=== PATIENT | female | born 2000 | race Caucasian/White ===

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

== ENCOUNTER 2022-10-10 07:47 | Emergency (ER) | payer MEDICAID ==
[~2022-10-10] VITALS: Ht 144.8 cm; Wt 59.0 kg
[2022-10-10 07:51] VITALS: BP 100/80
--- NOTE | 2022-10-10 07:59 | NUR ---
PT IS DRUNK UNABLE TO WALK BOYFRIEND TRIED TO GET A W/C HOWEVER , [employer] SAW THEM AND CALLED EMS FOR ASSISTANCE.
[2022-10-10 10:11] VITALS: BP 100/80
--- NOTE | 2022-10-10 10:11 | NUR ---
PT ELOPED AT THIS TIME
== END 2022-10-10 10:11 | disposition left against medical advice (07) ==
LOC: MED 07:47
DX: F10.129 Alcohol abuse with intoxication, unspecified (principal); Y90.9 Presence of alcohol in blood, level not specified
CPT/HCPCS: 99283